=== PATIENT | female | born 1990 | race Caucasian/White ===

== ENCOUNTER 2024-07-08 14:29 | Day surgery (SDC) | payer OTHER, SELFPAY ==
[2024-07-07 12:05] VITALS: BMI 21.9
[2024-07-08 14:42] VITALS: BMI 20.6
[2024-07-08 14:51] VITALS: BP 103/61; PULSE 55; RESP 14; TEMP 36.2; O2SAT 99
[2024-07-08] MEDS: CEFAZOLIN 2 GM/100 ML PREMIX 100 ML IV (15:10)
--- NOTE | 2024-07-08 15:30 | SUR.OPER ---
Supine on padded OR bed, head on pillow, arms secured on padded arm boards at <90 degrees abduction, legs uncrossed, safety belt at thigh, tape over blanket over lower legs.
[2024-07-08] MEDS: BUPIVACAINE 0.5% W/ EPI (PF) 30 ML VIAL 10 ML INJ (16:08)
[2024-07-08 16:15] VITALS: BP 77/37; PULSE 59; RESP 16; TEMP 36.5; O2SAT 96
--- NOTE | 2024-07-08 16:15 | PM.PREOP ---
Pre-operative Note Interval Note History & Physical reviewed/Exam performed by Physician: Yes Changes to H&P: No
--- NOTE | 2024-07-08 16:18 | P.OP_ITS ---
Operative Date/Time/Diagnoses Date of procedure: 07/08/24 Time of procedure: 15:30 Pre-op diagnosis: right small finger proximal phalanx fracture Post-op diagnosis: same Procedure & Clinicians Procedure: Open reduction internal fixation of a right small finger proximal phalanx fracture Same procedure as scheduled: Yes Indications: Displaced right small finger proximal phalanx fracture Surgeon: Figueroa Cheng Click Yes if Unassisted: Yes Anesthesia Type: General Operative Notes Findings: Displaced extra-articular proximal phalanx fracture resulting in a rotational deformity to the right small finger. Closure Type: primary Applied: implant(s) (Six hole 1.4 mm Arthrex plate) Estimated Blood Loss (mL): 5 Tourniquet time (min): 40 Procedure in detail: On date of service, patient was met in the holding area where her operative site was signed and witnessed by the OR staff. The surgery was once again discussed with the patient and any remaining questions or concerns that she had were answered fully. Patient was taken back to the operating theater and placed on the operating table in a supine position. Great care was taken to ensure that all bony prominences were appropriately padded. Time-out was performed verifying patient's name, procedure, and operative site. Right arm was prepped and draped in the normal sterile fashion. Well-padded tourniquet was placed on the upper forearm. Esmarch was used to exsanguinate the limb and the tourniquet was turned up to 250 mmHg. Dorsal incision was made over the proximal phalanx. A 15 blade was used incise through skin and fascial tissue. Electrocautery was used to achieve hemostasis. Deep knife was used for continued sharp dissection until the extensor tendon was identified. A lateral approach was performed in a split laterally to the ulnar aspect of the finger was done. This allowed us to expose the periosteal tissue which was then split also in the lateral aspect of the proximal phalanx. This gave us good visualization of the fracture. Hammett elevator was used to remove any soft tissue interposed in the fracture site. Was copiously irrigated and then a 2 point reduction forceps was then used to reduce the fracture. Mini C-arm was brought in to verify reduction. Once we were satisfied with the reduction, lateral plate was placed. All 6 holes were filled with bicortical screws providing a secure fixation of fracture site. Multiple views with the mini C- arm were obtained throughout screw placement verifying plate positioning, fracture alignment, and screw position and length. Final x-rays were obtained. The wound was then copiously irrigated. Periosteal tissue was covered over the plate and then the split lateral split in the extensor tendon was repaired with 4-0 Ethibond. Skin was closed with nylon. Patient had full range of motion of the finger with the MCP and PIP joints stable. The hand was cleaned, dried, and dressed. Patient was extubated and taken to the PACU in stable condition. Complications: none Post-operative Condition: stable Disposition: PACU Plan for aftercare: No restrictions to range of motion of the small finger. No lifting more than 2- 3 lb.
[2024-07-08 16:25] VITALS: BP 85/42; PULSE 82; RESP 12; TEMP 36.4; O2SAT 100
[2024-07-08 16:30] VITALS: BP 98/49; PULSE 89; RESP 12; O2SAT 100
[2024-07-08] MEDS: LACTATED RINGERS 1,000 ML 42 ML IV (16:31)
[2024-07-08] MEDS: SODIUM CHLORIDE 0.9% 1,000 ML 1000 ML IV (16:33)
[2024-07-08 16:35] VITALS: BP 103/53; PULSE 83; RESP 16; O2SAT 99
[2024-07-08 17:22] VITALS: BP 109/63; PULSE 47; RESP 16; TEMP 36.8; O2SAT 100
== END 2024-07-08 17:35 | disposition home or self-care (01) ==
PROVIDERS: PCP Naturopath; Referring Provider Orthopaedic Surgery; Visit Provider Orthopaedic Surgery
PROC: (CPT 26735; principal; 2024-07-08 16:00)
DX: S62.616A Displaced fracture of proximal phalanx of right little finger, initial encounter for closed fracture (principal); Y93.55 Activity, bike riding
CPT/HCPCS: 26735; 82962; J0690; J1100; J2405; J2704